=== PATIENT | female | born 1990 | race Caucasian/White ===

== ENCOUNTER 2016-12-24 07:31 | Emergency (ER) | payer OTHER ==
[2016-12-24] MEDS ORDERED: SODIUM CHLORIDE 0.9% 1,000 ML ONE (08:31)
[2016-12-24] MEDS ORDERED: MAALOX/LIDO2%VISC/SIMETHICONE 40 ML BOT ONE (08:31)
[2016-12-24] MEDS ORDERED: ONDANSETRON 4 MG/2ML 2 ML VIAL ONE (08:31)
[2016-12-24 08:52] LABS: ABSOLUTE NEUTROPHIL COUNT 10.1 K/mm3 (1.8-7.7); BASO % 0.2 % (0.2-1.0); EOS # 0.1 (0.0-0.5); EOS % 0.4 % (0.9-2.9); HEMATOCRIT 39.9 % (37.0-47.0); HEMOGLOBIN 13.7 gm/l (12.0-16.0); IMM NEUT # 0.1 K/mm3 (0-0.2); IMM NEUT% 0.4 % (0-1); LYMPH # 0.8 (1.0-4.8); LYMPH % 6.6 % (15-45); MEAN CELL VOLUME 92.1 fl (81.0-99.0); MEAN CORPUSCULAR HEMOGLOBIN 31.6 pg (27.0-31.0); MEAN CORPUSCULAR HGB CONC 34.3 g/dl (33.0-37.0); MEAN PLATELET VOLUME 9.6 fl (7.4-10.4); MONO # 0.5 (0.0-0.8); MONO % 4.1 % (4-12); NEUT % 88.3 % (43-75); PLATELET COUNT 271 K/mm3 (130-400); RED CELL DISTRIBUTION WIDTH 12.3 % (11.5-14.5)
[2016-12-24 09:12] LABS: ALB/GLOB RATIO 1.1 (>1.0); ALBUMIN 4.3 gm/dL (3.5-5.7); CALCIUM 9.5 mg/dL (8.6-10.3)
== END 2016-12-24 09:26 | disposition home or self-care (01) ==
LOC: ED 07:31
DX: R11.10 Vomiting, unspecified (principal); R10.9 Unspecified abdominal pain; R00.0 Tachycardia, unspecified